=== PATIENT | female | born 1945 | race Asian ===

== ENCOUNTER 2022-04-24 13:55 | Emergency (ER) | payer MEDICARE, MEDICAID ==
[~2022-04-24] VITALS: Ht 147.3 cm; Wt 72.7 kg
[2022-04-24 14:06] VITALS: BP 179/82
[2022-04-24] MEDS ORDERED: ketorolac trometh. 30mg/ml inj. IM ONE (15:25)
== END 2022-04-24 15:55 | disposition home or self-care (01) ==
LOC: ER 13:56
DX: S09.90XA Unspecified injury of head, initial encounter (principal); E78.00 Pure hypercholesterolemia, unspecified; I10 Essential (primary) hypertension; W18.30XA Fall on same level, unspecified, initial encounter; Y93.89 Activity, other specified; Y92.89 Other specified places as the place of occurrence of the external cause; Y99.8 Other external cause status
CPT/HCPCS: 96372; 99283; J1885

== ENCOUNTER 2022-11-20 15:43 | Emergency (ER) | payer MEDICARE, MEDICAID ==
[~2022-11-20] VITALS: Ht 147.3 cm; Wt 67.3 kg
[2022-11-20 15:49] VITALS: BP 142/78
[2022-11-20] MEDS ORDERED: proparacaine 0.5% ophthalmic drops 15ml EACHEYE ONE (17:05)
[2022-11-20] MEDS ORDERED: ibuprofen tablet 400 MG TABLET PO ONE (17:05)
[2022-11-20] MEDS ORDERED: acetaminophen 325mg tablet PO ONE ×2 (17:05)
[2022-11-20] MEDS ORDERED: ibuprofen 200mg tablet PO ONE (17:05)
[2022-11-20] MEDS ORDERED: HYDR-3965 PO (17:52)
[2022-11-20] MEDS ORDERED: VALA100031 PO (17:52)
== END 2022-11-20 18:07 | disposition home or self-care (01) ==
LOC: ER 15:43
DX: B02.9 Zoster without complications (principal); E78.00 Pure hypercholesterolemia, unspecified; I10 Essential (primary) hypertension; Z79.899 Other long term (current) drug therapy
CPT/HCPCS: 99284